=== PATIENT | male | born 1980 | race Caucasian/White ===

== ENCOUNTER → 2016-09-14 | Outpatient (CLI) | payer OTHER ==
[2014-11-06 15:57] VITALS: BP 148/92
[~2016-09-14] MED LIST: AMLO2.5T PO; GADOBUTROL 7.5 MMOL/7.5 ML VIAL IV ONE; HYDR12.53 PO; LISI-338 PO
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
== END | disposition home or self-care (01) ==
LOC: KCIC MRI 13:58
PROVIDERS: ATTEND Neurological Surgery
DX: M51.86 Other intervertebral disc disorders, lumbar region (principal)
CPT/HCPCS: 72158; A9585

== ENCOUNTER → 2017-08-31 | Outpatient (CLI) | payer OTHER ==
[2017-08-31] MEDS: GADOBUTROL 10 MMOL/10 ML VIAL IV ×2 (14:23)
== END | disposition home or self-care (01) ==
LOC: KCIC MRI 12:26
DX: M51.35 Other intervertebral disc degeneration, thoracolumbar region (principal); M43.8X5 Other specified deforming dorsopathies, thoracolumbar region
CPT/HCPCS: 72158; A9585

== ENCOUNTER → 2019-03-12 | Outpatient (CLI) | payer OTHER ==
[2014-11-06 15:57] VITALS: BP 148/92
[~2019-03-12] MED LIST changes: -AMLO2.5T PO; +AMLO2.5T5 PO; +CELE200C PO; +DICL50TA2 PO; +DOCU100C28 PO; -GADOBUTROL 7.5 MMOL/7.5 ML VIAL IV ONE; +HYDR-2761 PO; -HYDR12.53 PO; +HYDR12.575 PO; +LISI1TAB20 PO; +METH750T2 PO; +TEST5GEL TD
[2019-03-12 16:05] LABS: BASO # 0.1 x10^3/uL (0.0-0.2); BASO % 1 % (0-3); EOS # 0.3 x10^3/uL (0.0-0.7); EOS % 4 % (0-3); HEMATOCRIT 44.5 % (39.0-53.0); HEMOGLOBIN 15.8 g/dL (13.0-17.5); LYMPH # 2.2 x10^3/uL (1.0-4.8); LYMPH % 29 % (24-48); MEAN CORPUSCULAR HEMOGLOBIN 31 pg (25-35); MEAN CORPUSCULAR HGB CONC 35 g/dL (31-37); MEAN CORPUSCULAR VOLUME 87 fL (79-100); MONO # 0.5 x10^3/uL (0.0-1.1); MONO % 6 % (0-9); NEUT # 4.6 x10^3/uL (1.8-7.7); NEUT % 60 % (31-73); PLATELET COUNT 166 x10^3/uL (140-400); RED BLOOD COUNT 5.13 x10^6/uL (4.30-5.70); RED CELL DISTRIBUTION WIDTH 14.3 % (11.5-14.5); WHITE BLOOD COUNT 7.6 x10^3/uL (4.0-11.0)
[2019-03-12 16:35] LABS: ALBUMIN 4.1 g/dL (3.4-5.0); ALBUMIN/GLOBULIN RATIO 1.2 (1.0-1.7); CALCIUM 9.5 mg/dL (8.5-10.1); CREATININE 1.1 mg/dL (0.7-1.3); GFR 74.9; POTASSIUM 3.9 mmol/L (3.5-5.1); TOTAL BILIRUBIN 0.5 mg/dL (0.2-1.0); TOTAL PROTEIN 7.4 g/dL (6.4-8.2)
== END | disposition home or self-care (01) ==
LOC: SURGPAT 13:33
PROVIDERS: ATTEND Neurological Surgery
DX: Z01.818 Encounter for other preprocedural examination (principal); M50.122 Cervical disc disorder at C5-C6 level with radiculopathy; Z88.8 Allergy status to other drugs, medicaments and biological substances
CPT/HCPCS: 36415; 80053; 82306; 85025; 87641

== ENCOUNTER 2019-03-22 07:03 | Observation (INO) | payer OTHER ==
--- NOTE | 2019-03-20 15:10 | HP ---
ADMIT DATE: Nefatli Kimbrough dictating for Dr. Dwight Corrales. Date of surgery will be 03/22/2019. HISTORY OF PRESENT ILLNESS: The patient is a pleasant 39-year-old who has left-sided neck stiffness and pain which radiates into his left shoulder, arm and forearm. He notes weakness in his left arm. He says he has problems with headache. The problem started in 09/2018. He said initially he awakened with a stiff neck and has since involved into a neck, left shoulder and arm pain. He says at this time, the pain has improved slightly, but that the weakness in his arms seems more significant. There is no problem with his right arm. When he coughs or sneezes, he can develop very severe pain in his neck, left shoulder and arm. Early on, he underwent cervical epidural steroid injections, which he said did not help him. He says he is having difficulty now because he drops objects from his left hand because of the weakness. PAST MEDICAL HISTORY: Hypertension. PAST SURGICAL HISTORY: Hernia repair in 2011, appendectomy in 2014, cholecystectomy in 2016. FAMILY HISTORY: Diabetes, heart problems and disease, hypertension. SOCIAL HISTORY: He is an journeyman electrician. Single. Walks daily. Denies substance abuse. Former smoker. Quit drinking alcohol about 1 year ago. Drinks coffee and soda daily. ALLERGIES: NORCO. CURRENT MEDICATIONS: Amlodipine, lisinopril and AndroGel. REVIEW OF SYSTEMS: A 12-point review of systems was obtained and is noncontributory except for that mentioned above. PHYSICAL EXAMINATION: NEUROSURGERY EXAMINATION: GENERAL APPEARANCE: Alert, pleasant, no acute distress. HEAD: Normocephalic, atraumatic. SKIN: Warm and dry. MUSCULOSKELETAL: Cervical paraspinal muscle bulk is normal, cervical restricted range of motion, normal range of motion of the upper extremities bilaterally. EXTREMITIES: No clubbing, cyanosis or edema. NEUROLOGIC: Alert and oriented x 3, normal recent and remote memory. Strength 5/5 in bilateral upper and lower extremities except 4/5, left biceps and left wrist extension. Sensory is intact to light touch in the upper and lower extremities. Reflexes are present and symmetric in the upper and lower extremities bilaterally. Normal gait. IMAGING: Reviewed. I reviewed a cervical MRI scan from 10/24/2018. On that study, the principal abnormalities are at C3-C4 and C5-C6. At both of these levels, there are left-sided disk herniations with lateral stenosis present. ASSESSMENT: Cervical disk disorder at C5-C6 level with radiculopathy. PLAN: The problem at C5-C6 is symptomatic with left cervical radiculopathy related to disk herniation and left lateral recess narrowing. My recommendation is that the patient is 39 years old to have a diskectomy with disk replacement. My concern about his protracted weakness, which he feels is worsening. I discussed the surgery with him in detail. The surgery and the risks as well as the associated risks from anterior neck surgery were outlined as were the sequelae of injury to soft tissue structures of the neck. I spoke about the postoperative course. He understands. He would like to go ahead. We will make the arrangements. DWIGHT CORRALES MD DR: BUD/vu JOB#: [id number] / [id number]
[2019-03-22] VITALS (10 sets, daily range): BP systolic 121–143; BP diastolic 73–94
[~2019-03-22] VITALS: Ht 182.9 cm; Wt 131.0 kg
[~2019-03-22 07:03] MED LIST changes: +BACITRACIN 50,000 UNIT in IV NORMAL SALINE 1000ML BAG 1,000 ML IRR ONE; -DOCU100C28 PO; -HYDR-2761 PO; +HYDROmorphone 2 MG/ML VIAL IV PRN; +IV RINGERS,LACTATED 1000ML 1,000 ML IV SCH; +LIDOCAINE 1% PF 2 ML VIAL. ID PRN; -METH750T2 PO; +MORPHINE SULFATE 2 MG/ML VIAL. IV PRN; +ONDANSETRON PF 4 MG/2 ML VIAL. IV PRN; +PROCHLORPERAZINE 10 MG/2 ML VIAL. IV PRN; +ceFAZolin SODIUM 3 GM in IV DEXTROSE 5% 100ML 100 ML IV PRN; +fentaNYL PF VIAL 100 MCG/2 ML VIAL IV PRN
[2019-03-22] MEDS ORDERED: GELATIN SPONGE SIZE 12-7MM SPONGE. ONE ×2 (07:30)
[2019-03-22] MEDS ORDERED: THROMBIN TOPICAL 20,000 UNIT SPRAY.SYRN KIT TP ONE (07:30)
[2019-03-22] MEDS ORDERED: BUPIVACAINE-EPI 0.5%-1:200000 MPF 30 ML VIAL. INJ ONE (08:00)
[2019-03-22] MEDS ORDERED: PROPOFOL 100 ML IV ONE (08:05)
[2019-03-22] MEDS ORDERED: REMIFENTANIL 2 MG VIAL. IV ONE (08:11)
[2019-03-22] MEDS ORDERED: MIDAZOLAM HCL/PF 2 MG/2 ML VIAL. ONE (08:11)
[2019-03-22] MEDS ORDERED: DESFLURANE > 120 MINUTES IH ONE (08:11)
[2019-03-22] MEDS ORDERED: NEOSTIGMINE METHYLSULFATE 5 MG/5 ML SYRINGE. ONE (08:11)
[2019-03-22] MEDS ORDERED: fentaNYL PF VIAL 100 MCG/2 ML VIAL ONE ×2 (08:11→12:52)
[2019-03-22] MEDS ORDERED: GLYCOPYRROLATE 1 MG/5 ML VIAL. ONE (08:11)
[2019-03-22] MEDS ORDERED: ONDANSETRON PF 4 MG/2 ML VIAL. ONE (08:12)
[2019-03-22] MEDS ORDERED: DEXAMETHASONE SOD PHOS 20 MG/5 ML VIAL. ONE (08:12)
[2019-03-22] MEDS ORDERED: LIDOCAINE 2% PF 5 ML VIAL. ONE (08:12)
[2019-03-22] MEDS ORDERED: ROCURONIUM 50 MG/5 ML VIAL. ONE (08:12)
[2019-03-22] MEDS ORDERED: PHENYLEPHRINE 10 MG/ML VIAL. ONE (08:12)
[2019-03-22] MEDS ORDERED: PROPOFOL 20 ML IV ONE (08:12)
[2019-03-22] MEDS ORDERED: REMIFENTANIL 1 MG VIAL. IV ONE (11:02)
[2019-03-22] MEDS ORDERED: PROPOFOL 50 ML IV ONE (11:03)
[2019-03-22] MEDS: fentaNYL PF VIAL 100 MCG/2 ML VIAL IV PRN ×2 (12:52→13:34)
[2019-03-22] MEDS ORDERED: MAGNESIUM HYDROXIDE 2,400 MG/30 ML ORAL.SUSP. PO PRN (13:00)
[2019-03-22] MEDS ORDERED: diphenhydrAMINE HCL 25 MG CAPSULE PO PRN (13:00)
[2019-03-22] MEDS ORDERED: MAG HYDROX/ALUMINUM HYD/SIMETH 30 ML ORAL.SUSP PO PRN (13:00)
[2019-03-22] MEDS ORDERED: POTASSIUM CL 20MEQ D5-0.45NACL 1,000 ML IV SCH (13:00)
[2019-03-22] MEDS ORDERED: CALCIUM CARBONATE 500 MG TAB.CHEW PO PRN (13:00)
[2019-03-22] MEDS ORDERED: ZOLPIDEM 5 MG TABLET. PO PRN (13:00)
[2019-03-22] MEDS ORDERED: ACETAMINOPHEN 325 MG TABLET. PO PRN (13:00)
[2019-03-22] MEDS ORDERED: ONDANSETRON PF 4 MG/2 ML VIAL. IV PRN (13:00)
[2019-03-22] MEDS ORDERED: 0.9 % SODIUM CHLORIDE 10 ML DISP.SYRIN. IV PRN (13:00)
[2019-03-22] MEDS ORDERED: NALOXONE 0.4 MG/ML VIAL. IV PRN (13:00)
[2019-03-22] MEDS: amLODIPine BESYLATE 5 MG TABLET PO SCH (14:00)
[2019-03-22] MEDS: hydroCHLOROthiazide 25 MG TABLET PO SCH (14:00)
[2019-03-22] MEDS: LISINOPRIL 20 MG TABLET PO SCH (14:00)
[2019-03-22] MEDS ORDERED: HYDROcodone/APAP 5/325MG 1 TAB TABLET PO PRN (14:45)
--- NOTE | 2019-03-22 15:14 | NUR ---
Pt arrived on unit by bed at approx 1410. Pt oriented to room and call light. Pt attached to vitals machine for frequents. Pt given ice chips, no other concerns at this time. Will continue to monitor pt.
[2019-03-22] MEDS: CELECOXIB 100 MG CAPSULE. PO SCH (15:52)
[2019-03-22] MEDS: METHOCARBAMOL 750 MG TABLET PO PRN ×2 (15:52→22:07)
[2019-03-22] MEDS: fentaNYL PF VIAL 100 MCG/2 ML VIAL IVP PRN ×2 (15:54→18:44)
[2019-03-22] MEDS: ceFAZolin SODIUM IV Push 1 GM VIAL. IVP SCH ×2 (18:06→22:09)
--- NOTE | 2019-03-22 20:03 | OP ---
DATE OF SURGERY: 03/22/2019 PREOPERATIVE DIAGNOSIS: Herniated cervical disc with cervical radiculopathy, C5-6. POSTOPERATIVE DIAGNOSIS: Herniated cervical disc with cervical radiculopathy, C5-6. OPERATION PERFORMED: Anterior disc arthroplasty, C5-6. The operation was done with EMG monitoring, SSEP monitoring, NIMS monitoring, fluoroscopy, and microscopic dissection. MANAGEMENT SERVICES TECHNICIAN: ANSHUL Souza assisted with the surgery. She assisted with the exposure, discectomy, the disc arthroplasty as well as the closure. OPERATIVE INDICATIONS: The patient is a pleasant 39-year-old who developed intractable neck and left arm pain along with weakness of his left biceps. He was found to have 2 problems, left-sided disc at C3-4, and a disc herniation at C5-6 on the left. I felt that the majority of his symptoms were due to the problems at C5-6 and I did not think it is advisable to operate at C5-6 and then move up to levels to C3-4 in the same surgery and I felt that it would be most appropriate to perform a disc replacement surgery and I did discuss this with him and he wished to go ahead. He understood the surgery and the risks. He understood that if there were problems with the system, we could perform a conventional operation with a standard anterior discectomy and fusion, either early or late. He understood the rationale for surgery and he wished to go ahead. DESCRIPTION OF PROCEDURE: Following general endotracheal anesthesia, the patient was positioned supine on the operating room table. His head was in a neutral position. The anterior cervical region was clipped, prepped, and draped in standard fashion. JAMES hose and AV impulse boots were applied for DVT prophylaxis and microscope was draped. Fluoroscopy was draped and brought into the field. Monitoring was established. Ancef 2 g was given less than 1 hour prior to initiation of surgery. An incision was then made in the midline around to the right in a skin crease. I dissected down through the skin and subcutaneous tissue. I dissected from the medial aspect of sternocleidomastoid and carotid artery sheath after sharply dividing the platysma, reflected the trachea and esophagus contralaterally and placed self-retaining retractors and placed distraction pins in C5 and C6. I incised the anterior annulus and I very gently distracted and I performed discectomy with pituitary rongeurs. I drilled the anterior spurring and then drilled the posterior spurring and I opened the annulus and ligament with 1 and 2-mm micro Kerrison's. The disc on the left was tenacious and scarred, and I had to work diligently to gradually peel this away. There were multiple small fragments and I removed these and as I worked, the region became very well decompressed. After fully decompressing the region and preparing the endplates then, using the Hupuige system, I started to use again 5 trial and guide, but did not fully get quite adequate exposure. The 6 was somewhat more snugged, but I felt it had better footprint, better coverage, and I thought it would be more appropriate for this large man. I therefore prepared the endplates and tapped the guide into place. I confirmed my position multiple times with fluoroscopic images. I then cut the trough superiorly and inferiorly in a standard fashion and then measured and placed a 6 x 30 mm cage, which was gently tapped into position. I felt that at the end, especially on the lateral view, the system looked excellent. There was a slight amount of angulation on the AP view, but I still was very happy with the surgery, the positioning, and the decompression. Hemostasis was excellent throughout. I irrigated copiously with antibiotic solution. I removed the retractors and gently let the esophagus move back as well as the trachea. I closed the platysma after exploring carefully and assured myself that hemostasis was perfect. Platysma was closed with absorbable suture followed by subcutaneous tissue followed by the skin with a 4-0 subcuticular stitch. The operation went very well. I was quite pleased with the surgery. The patient was awakened uneventfully, taken to recovery room in excellent condition with normal strength. Again, I was quite pleased with the surgery. QI CORRALES MD DR: BUD/vu JOB#: [id number] / [id number]
[2019-03-22] MEDS: HYDROcodone/APAP 5/325MG 1 TAB TABLET PO PRN (22:07)
[2019-03-22] MEDS: DOCUSATE SODIUM 100 MG CAPSULE. PO SCH (22:07)
[2019-03-23] MEDS: ceFAZolin SODIUM IV Push 1 GM VIAL. IVP SCH (05:45)
[2019-03-23] MEDS: HYDROcodone/APAP 5/325MG 1 TAB TABLET PO PRN (05:56)
--- NOTE | 2019-03-23 06:00 | NUR ---
Slept well all noc w/ Cpap. VSS. Lortab given for c/o pain rating 5/10.
[2019-03-23 06:37] VITALS: BP 146/88
[2019-03-23 08:35] VITALS: BP 146/88
[2019-03-23] MEDS: LISINOPRIL 20 MG TABLET PO SCH (08:35)
[2019-03-23] MEDS: amLODIPine BESYLATE 5 MG TABLET PO SCH (08:35)
[2019-03-23] MEDS: CELECOXIB 100 MG CAPSULE. PO SCH (08:35)
[2019-03-23] MEDS: DOCUSATE SODIUM 100 MG CAPSULE. PO SCH (08:35)
[2019-03-23] MEDS: hydroCHLOROthiazide 25 MG TABLET PO SCH (08:35)
[2019-03-23] MEDS ORDERED: TESTOSTERONE TP SCH (09:00)
[2019-03-23] MEDS ORDERED: FLU VAX QS 2019-20 (36MOS+)/PF 0.5 ML SYRINGE. VAX IM ONE (09:00)
[2019-03-23] MEDS ORDERED: HYDR-2761 PO (10:54)
[2019-03-23] MEDS ORDERED: METH750T2 PO (10:54)
[2019-03-23] MEDS ORDERED: DOCU100C28 PO (10:54)
--- NOTE | 2019-03-23 10:55 | DISCH ---
DISCHARGE INSTRUCTIONS Condition on Discharge Condition on Discharge: Stable Activity After Discharge Activity Instructions for Disc: Activity as tolerated, Avoid exertion Other activity instructions: no driving for a week Bathing Instructions: Shower-keep dressing dry Lifting Instructions after Dis: No heavy lifting, No pulling or pushing, Do not lift >10 pounds Diet after Discharge Additional Diet Restrictions: resume home diet Wound Incision Care Wound/Incision Care: Ice to area for comfort Other wound/incision instructi: may remove dressing in 48 hours if dry then may shower, no soaking Contacting the after DC Call your doctor for: Concerns you may have Follow-Up Follow up with: Dr. Corrales's nurse in 2 weeks [phone] QI CORRALES MD Mar 23, 2019 10:55
[2019-03-23] MEDS: METHOCARBAMOL 750 MG TABLET PO PRN (12:49)
--- NOTE | 2019-03-23 13:03 | NUR ---
Patient left the building around 1300 with his . Discharge education was completed by this nurse, therapy, and ARIC Palma. Dressing changed on anterior neck without any complications or concerns noted. Extra dressings given to patient for dressing changes at home for comfort purposes. No drainage noted from incision at this time. Soft collar on. IV discontinued in left hand and a bandage applied. Scripts given to patient for robaxin and norco. No concerns noted from the patient or his upon discharge.
--- NOTE | 2019-03-23 22:06 | PATHOLOGY ---
[facility] Accession Number: [id number] . 01 Material submitted: . vertebral column - CERVICAL DISC . 01 Clinical history: . Cervical herniated disc with radiculopathy. . 02 Diagnosis: "Cervical disc", discectomy: - Intervertebral disc material with reactive and degenerative changes. (CLW/db; 03/23/2019) LBQ 03/23/2019 1502 Local . 02 Electronically signed: . Xiomara Ruggiero MD, Pathologist NPI- [id number] . 01 Gross description: . Received in formalin labeled "Cristian Diamond, cervical disc" is a 4.0 x 2.5 x 1.0 cm aggregate of wilson-white rubbery soft tissue fragments. Bone is not grossly identified. Carnival Worker tissue is submitted in cassette A1. [place] [place] [facility] 03/22/2019 1907 Local . 02 Pathologist provided ICD-10: M50.30 . 02 CPT . 370768 Specimen Comment: A courtesy copy of this report has been sent to Specimen Comment: [phone], . Specimen Comment: Report sent to / DR YBARRA Performed at: 01 [facility] [address], [place], [place] [id number] MD Jed Arriaga MD Phone: [phone] Performed at: 02 [facility] [address] [place], [place] [id number] MD Jermaine Russ MD Phone: [phone]
== END 2019-03-23 13:00 | disposition home or self-care (01) ==
LOC: SURG 07:03 → 4 SOUTHEST 12:31
PROVIDERS: ADMIT Neurological Surgery; ATTEND Neurological Surgery
DX: M50.122 Cervical disc disorder at C5-C6 level with radiculopathy (principal); I10 Essential (primary) hypertension; Z82.49 Family history of ischemic heart disease and other diseases of the circulatory system; Z83.3 Family history of diabetes mellitus; Z87.891 Personal history of nicotine dependence; Z90.49 Acquired absence of other specified parts of digestive tract; Z23 Encounter for immunization
CPT/HCPCS: 22856; 76000; 88304; 88311; 90471; 90686; 96374; 96375; 96376; 97161; A7015; G0378; G0379; J0690; J1100; J2001; J2250; J2704; J2710; J3010; J3490; J7030; J7120; J2405